=== PATIENT | male | born 2000 | race Two or more races ===

== ENCOUNTER 2022-06-21 15:36 | Emergency (ER) | payer OTHER ==
[2022-06-21 15:44] VITALS: BP 136/62
[2022-06-21] MEDS: LIDOCAINE PATCH 5% TOP STA (16:36)
--- NOTE | 2022-06-21 16:46 | XRAY Report ---
PROCEDURE: Lumbar Spine 2 View INDICATIONS: fall/pain TECHNIQUE: 2 views of the lumbar spine were acquired. COMPARISON: None. FINDINGS: Bones: 5 [id number] vertebrae are present. There is normal bony alignment. No vertebral body compression fractures. No suspicious bony lesions. Soft tissues: Overlying bowel gas pattern is normal. No suspicious soft tissue calcifications. IMPRESSION: No acute fracture. No osseous lesion. If symptoms and/or clinical suspicion for patholog y continue, further assessment with repeat plain films, or advanced imaging (e.g., CT, MRI, or bone s can) is recommended for further assessment. Reviewed by: Ashwin Patel MD on 06/21/2022 4:45 PM PDT Approved by: Ashwin Patel MD on 06/21/2022 4:45 PM PDT Station ID: [id number]
--- NOTE | 2022-06-21 17:20 | ED Physician Documentation ---
PD HPI BACK PAIN - Stated complaint Stated Complaint: BACK PX - Chief complaint Chief Complaint: Back Pain - History obtained from History obtained from: Patient - Additional information Additional information: Pt is 21 yo M with history of ongoing lower back pain for months with worsening pain since Saturday. It is sharp and aching. He started new job in [employer] and has been shoveling a lot this week. Today he picked up a mat at work and felt his back lock up and fell down. He did not hit his head or have LOC. Pt does not take blood thinners, denies IVDA, denies bowel/bladder incontinence, denies sad dle anesthesia. He denies numbness or weakness to legs and was able to ambulate into ED. Pain can be sharp at times but is helped with ice and rest. Review of Systems Constitutional: denies: Fever Cardiac: denies: Chest pain / pressure Respiratory: denies: Dyspnea GI: denies: Abdominal Pain, Vomiting : denies: Incontinent Musculoskeletal: reports: Back pain Neurologic: denies: Headache PD PAST MEDICAL HISTORY - Past Medical History Past Medical History: Yes Cardiovascular: None Respiratory: None Neuro: None Endocrine/Autoimmune: None GI: None : None HEENT: None Psych: None Musculoskeletal: Chronic back pain Derm: None - Past Surgical History Past Surgical History: No - Present Medications Home Medications: Ambulatory Orders Medication Instructions Recorded Confirmed No Known Home Medications 06/21/22 06/21/22 - Allergies Allergies/Adverse Reactions: Allergies Allergy/AdvReac Type Severity Reaction Status Date / Time No Known Drug Allergies Allergy Verified 06/21/22 15:39 - Social History Does the pt smoke?: No Smoking Status: Never smoker Does the pt drink ETOH?: No Does the pt have substance abuse?: No - Immunizations Immunizations are current?: Yes PD ED PE NORMAL - General General: Alert and oriented X 3, No acute distress, Well developed/nourished - HEENT HEENT: Atraumatic - Neck Neck: Supple, no meningeal sign, No bony TTP, C-Spine cleared by NEXUS criteria - Cardiac Cardiac: RRR, Strong equal pulses - Respiratory Respiratory: No respiratory distress, Clear bilaterally - Abdomen Abdomen: Soft, Non tender, Non distended - Back Back: No: No spinal TTP (Mild midline low lumbar tenderness; no step off or deformities) - Extremities Extremities: No edema - Neuro Neuro: Alert and oriented X 3, No motor deficit, No sensory deficit, Other (Normal gait) Results - Vitals Vitals: Vital Signs - 24 hr 06/21/22 15:40 Temperature 36.9 C Heart Rate 75 Respiratory 16 Rate Blood Pressure 136/62 H O2 Saturation 99 Oxygen O2 Source Room air PD MEDICAL DECISION MAKING - ED course Complexity details: reviewed results, re-evaluated patient, d/w patient ED course: Pt with low back pain. No red flag signs/symptoms. Ambulatory. Xray negative for fracture. Discussed other causes of pain. Pt counseled on continuing with supportive care and advised on concerning symptoms to return for. Departure - Departure Disposition: 01 Home, Self Care Clinical Impression: Low back strain Qualifiers: Encounter type: initial encounter Qualified Code(s): S39.012A - Strain of muscle, fascia and tendon of lower back, initial encounter Condition: Stable Instructions: ED Low Back Pain Injury Comments: You were evaluated for low back pain. An x-ray is negative for a broken bone. However there are many other causes of back pain including issues with discs muscles in the area. At this time I recommend conservative management with lidocaine patches or anti-inflammatory such as acetaminophen or ibuprofen. I would also recommend rest over the next several days and to avoid any activity or work that includes heavy lifting, pushing or pulling, Or motions that may irritate your low back.If you have any worsening symptoms such as leg weakness, fevers, difficulty controlling your bowel or bladder function or any other concerns please return to the ER. Forms: Activity restrictions Discharge Date/Time: 06/21/22 17:32
== END 2022-06-21 17:32 | disposition home or self-care (01) ==
LOC: ED 15:36
DX: S39.012A Strain of muscle, fascia and tendon of lower back, initial encounter (principal); X50.0XXA Overexertion from strenuous movement or load, initial encounter; Y99.0 Civilian activity done for income or pay
CPT/HCPCS: 72100; 99282; 99283; A9270